=== PATIENT | female | born 1965 | race Caucasian/White ===

== ENCOUNTER 2020-03-16 17:07 | Emergency (ER) | payer OTHER ==
[~2020-03-16] VITALS: Ht 170.2 cm; Wt 61.2 kg
[2020-03-16] MEDS ORDERED: TRAMADOL 50 MG50 MG PO (17:26)
[2020-03-16] MEDS ORDERED: NORCO 5-325 TA1 EAC2 PO (18:18)
[2020-03-16] MEDS ORDERED: KEFLEX500 M1 PO (18:18)
[2020-03-16 19:57] VITALS: BP 106/64
== END 2020-03-16 19:59 | disposition home or self-care (01) ==
LOC: M.ERS 17:07
DX: S52.591A Other fractures of lower end of right radius, initial encounter for closed fracture (principal); S01.112A Laceration without foreign body of left eyelid and periocular area, initial encounter; Z90.13 Acquired absence of bilateral breasts and nipples; V19.49XA Pedal cycle driver injured in collision with other motor vehicles in traffic accident, initial encounter; Y93.89 Activity, other specified; Y92.89 Other specified places as the place of occurrence of the external cause; Y99.8 Other external cause status